=== PATIENT | female | born 1945 | race African-American/Black ===

== ENCOUNTER 2016-08-22 23:47 | Emergency (ER) | payer OTHER, MEDICAID ==
[2016-08-23] MEDS ORDERED: DILAUDID 1 MG/ML AMP ONE (01:53)
[2016-08-23] MEDS ORDERED: SODIUM CHLORIDE 0.9% 1,000 ML ONE (05:35)
[2016-08-23] MEDS ORDERED: ONDANSETRON ODT 4 MG TAB ONE (17:29)
== END 2016-08-23 06:09 | disposition other institution (70) ==
LOC: ER 23:47
DX: R10.9 Unspecified abdominal pain (principal); I71.4 Abdominal aortic aneurysm, without rupture; Z79.899 Other long term (current) drug therapy; Z79.84 Long term (current) use of oral hypoglycemic drugs; I10 Essential (primary) hypertension; E11.9 Type 2 diabetes mellitus without complications; E78.00 Pure hypercholesterolemia, unspecified; F17.210 Nicotine dependence, cigarettes, uncomplicated
CPT/HCPCS: 36415; 74022; 74176; 80053; 81001; 82553; 83690; 84484; 85025; 93005; 96374; 99291; J1170